=== PATIENT | female | born 1985 | race Caucasian/White ===

== ENCOUNTER 2017-11-20 08:45 | Emergency (ER) | payer BC, OTHER ==
[~2017-11-20] VITALS: Ht 165.1 cm; Wt 99.8 kg
--- OUTSIDE RECORDS SUMMARY | 2017-11-20 08:53 | XMS REPORT ---
Author TIAGO Rangel [facility] eClinicalWorks Address Unknown Phone Unavailable Care Team Providers Care [employer] Agent Name Role Phone TIAGO ROSAS CP Unavailable Allergies No Known Allergies Problems Problem Type Condition ICD-9 Code Onset Dates Condition Status Assessment Screening for tuberculosis V74.1 Active Medications No Known Medications Procedures Procedure Coding System Code Date TB INTRADERMAL TEST CPT-4 64120 Jan 25, 2015 Results No Known Results Summary Purpose eClinicalWorks Submission
[2017-11-20] MEDS ORDERED: SERT50TA2 PO (09:22)
--- NOTE | 2017-11-20 10:18 | Diagnostic Imaging Report ---
PROCEDURE: CT head without contrast. TECHNIQUE: Multiple contiguous axial images were obtained through the brain without the use of intravenous contrast. INDICATION: Trauma, Headache There are no prior studies available for comparison. There is no mass, shift of midline or hemorrhage to suggest an acute intracranial abnormality. The normal tentorial blush is noted. The ventricles are not abnormally dilated. The bone window show no evidence for a fracture or for a destructive lesion. The orbits and sinuses were not visualized in their entirety. Where visualized there is no acute abnormality. IMPRESSION: 1. There is no evidence for an acute intracranial abnormality. 2. If clinical concern regarding an underlying abnormality persists, then MRI would be recommended for further study. Dictated by: Dictated on workstation # [id number]
[2017-11-20] MEDS ORDERED: ONDANSETRON 4 MG (ZOFRAN) ORAL DISSOLVE TAB PO ONE (10:30)
[2017-11-20] MEDS ORDERED: KETOROLAC 60 MG/2 ML VIAL IM ONE (10:30)
--- NOTE | 2017-11-20 10:30 | ED Head Injury ---
General Chief Complaint: Head/Cervical Problems Stated Complaint: MIGRAINE Nursing Triage Note: HIT BACK OF HEAD, LAST NIGHT, ON METAL RACK. NO LOC. STATES WOKE UP THIS MORNING NOT FEELING LIKE HERSELF. STATED SHE VOMITTED @7X, CLEAR LIQUID. TOOK 1000MG TYLENOL AT 0600, HELPED WITH H/A. STATES H/A WORSE WHEN LYING DOWN Source: patient Exam Limitations: no limitations History of Present Illness Date Seen by Provider: Nov 20, 2017 Time Seen by Provider: 09:08 Initial Comments PT ARRIVES VIA POV FROM HOME PT STATES LAST NIGHT AROUND 1915, SHE BENT OVER AND PICKED UP HER CHILD FROM UNDER A RACK OF CLOTHES AND WHEN SHE RAISED UP, SHE BUMPED THE BACK OF HER HEAD ON METAL CLOTHES RACK STATES SHE WOKE UP WITH A "MIGRAINE" THIS MORNING STATES SHE HAS VOMITED X 6-7 THIS AM TOOK TYLENOL AT 0600 AND IT HELPED HEADACHE NO LOSS OF CONSCIOUSNESS NO PARESTHESIAS OR MOTOR DEFICITS NO VISION CHANGES NO NECK PAIN NO DIZZINESS Allergies and Home Medications Allergies Coded Allergies: No Known Drug Allergies (Unverified , 11/20/17) Home Medications Butalb/Acetaminophen/Caffeine 1 Each Capsule, 1-2 EACH PO Q6H PRN for HEADACHE Prescribed by: DORA MENA on 11/20/17 1052 Ondansetron 4 Mg Tab.rapdis, 4 MG PO Q4H Prescribed by: DORA MENA on 11/20/17 1052 Sertraline HCl 50 Mg Tablet, 50 MG PO DAILY, (Reported) Patient Home Medication List Home Medication List Reviewed: Yes Review of Systems Constitutional: no symptoms reported Eyes: No Symptoms Reported Ears, Nose, Mouth, Throat: no symptoms reported Respiratory: no symptoms reported Cardiovascular: no symptoms reported Gastrointestinal: see HPI; No abdominal pain; nausea, vomiting Genitourinary: no symptoms reported Musculoskeletal: no symptoms reported Psychiatric/Neurological: See HPI; Denies Cognitive Dysfunction; Headache; Denies Numbness, Denies Tingling, Denies Weakness Endocrine: No Symptoms Reported Hematologic/Lymphatic: No Symptoms Reported Past Ohtuzad-Aidiwj-Qcqbrr Hx Patient Social History Alcohol Use: Rarely Uses Recreational Drug Use: No Smoking Status: Never a Smoker 2nd Hand Smoke Exposure: No Recent Foreign Travel: No Contact w/Someone Who Travel: No Recent Infectious Disease Expo: No Recent Hopitalizations: No Physical Abuse: No Sexual Abuse: No Immunizations Up To Date Tetanus Booster (TDap): Less than 5yrs Seasonal Allergies Seasonal Allergies: Yes Past Medical History Surgeries: Yes Section, Gallbladder, Orthopedic, Tonsillectomy Respiratory: No Cardiac: No Neurological: No : No Last Menstrual Period: Nov 16, 2017 Sexually Transmitted Disease: No Genitourinary: No Gastrointestinal: Yes ( ) Hiatal Hernia Musculoskeletal: No Endocrine: No HEENT: No Cancer: No Psychosocial: Yes Anxiety Nursing Suicide Risk Score: 0 Integumentary: No Blood Disorders: No Adverse Reaction/Blood Tranf: No Physical Exam Vital Signs Capillary Refill : Less Than 3 Seconds Height, Weight, BMI Height: 5'5.00" Weight: 220lbs.oz.[id number]; BMI Method:Stated General Appearance: WD/WN, no apparent distress HEENT: PERRL/EOMI, normal ENT inspection, TMs normal, pharynx normal, other ( NO EXTERNAL EVIDENCE OF TRAUMA) Neck: non-tender, full range of motion, supple, normal inspection Cardiovascular: regular rate, rhythm, no murmur Respiratory: normal breath sounds, no respiratory distress Gastrointestinal: normal bowel sounds, non tender, soft Back: normal inspection, no CVA tenderness Extremities: normal range of motion, non-tender, normal inspection, no pedal edema, no calf tenderness, normal capillary refill Psychiatric: alert, oriented x 3 Crainal Nerves: normal hearing, normal speech, PERRL Coordination/Gait: normal finger to nose, normal gait, negative Romberg's sign Motor/Sensory: no motor deficit, no sensory deficit Skin: normal color, warm/dry Progress/Results/Core Measures Results/Orders My Orders Vital Signs/I&O Blood Pressure Mean: [address] HEAD--NO ACUTE PROCESS, PER RADIOLOGIST REPORT @ 1030 Reviewed: Reviewed by Me Departure Impression Primary Impression: Minor head injury without loss of consciousness Additional Impression: POSSIBLE CONCUSSION Disposition: 01 HOME, SELF-CARE Condition: Stable Departure-Patient Inst. Referrals: IRIS KENNEDY DO (PCP/Family) Primary Care Physician Patient Instructions: Concussion, Adult (DC) Add. Discharge Instructions: LOTS OF CLEAR LIQUIDS TYLENOL 1 GRAM / MOTRIN 800 MG 4 TIMES A DAY FOR PAIN FOLLOW UP WITH YOUR DR IN 2-3 DAYS FOR FURTHER CARE All discharge instructions reviewed with patient and/or family. Voiced understanding. Scripts Butalb/Acetaminophen/Caffeine (Esgic Capsule) 1 Each Capsule 1-2 EACH PO Q6H PRN for HEADACHE, #10 CAP Prov: DORA MENA DO 11/20/17 Ondansetron (Zofran Odt) 4 Mg Tab.rapdis 4 MG PO Q4H for Nausea/Vomiting, #10 TAB Prov: DORA MENA DO 11/20/17 DORA MENA DO Nov 20, 2017 10:30
[2017-11-20] MEDS ORDERED: BUTA1CAP45 PO (10:52)
[2017-11-20] MEDS ORDERED: ONDA4TAB8 PO (10:52)
[2017-11-20 11:05] VITALS: BP 102/62
== END 2017-11-20 11:05 | disposition home or self-care (01) ==
LOC: EDUNIT# 08:45 → ER 08:50
DX: S09.90XA Unspecified injury of head, initial encounter (principal); G43.909 Migraine, unspecified, not intractable, without status migrainosus; F41.9 Anxiety disorder, unspecified; Z87.59 Personal history of other complications of pregnancy, childbirth and the puerperium; Z90.89 Acquired absence of other organs; W22.09XA Striking against other stationary object, initial encounter
CPT/HCPCS: 70450; 96372

== ENCOUNTER → 2019-07-26 | Outpatient (CLI) | payer BC, OTHER ==
[~2019-07-26] MED LIST: BUTA1CAP45 PO; ONDA4TAB8 PO; SERT50TA2 PO
--- NOTE | 2019-07-26 15:20 | Diagnostic Imaging Report ---
PROCEDURE: US Non-ob pelvis comp/trans. TECHNIQUE: Multiple realtime grayscale images were obtained of the pelvis in various projections endovaginally. Transabdominal imaging was also performed. INDICATION: Acute pelvic pain and right ovarian enlargement. FINDINGS: Uterus is anteverted measuring 9.5 x 5.0 x 5.8 cm. Endometrium is approximately 10 mm in thickness. No myometrial mass is detected. Right ovary does contain multiple enlarged cysts. Largest cyst measures 7.7 x 5.3 x 9.2 cm. There is also some septated right ovarian cyst. There is blood flow to the right ovary. Left ovary also contains multiple cysts, largest 4.6 x 3.6 x 4.6 cm. There is blood flow to the left ovary. No other adnexal mass is seen. There is no free fluid. IMPRESSION: Bilateral ovarian cystic masses some of which are septated. Follow-up ultrasound in six to eight weeks is recommended to confirm stability/clearing. Dictated by: Dictated on workstation # [id number]
== END ==
LOC: RAD 13:43
PROVIDERS: ATTEND Obstetrics & Gynecology
DX: N83.8 Other noninflammatory disorders of ovary, fallopian tube and broad ligament (principal); R10.2 Pelvic and perineal pain
CPT/HCPCS: 76830; 76856

== ENCOUNTER 2019-08-05 05:35 | Outpatient (CLI) | payer BC ==
[~2019-08-05] VITALS: Ht 165.1 cm; Wt 79.5 kg
== END 2019-08-05 10:49 | disposition home or self-care (01) ==
LOC: PREOP 05:35
PROVIDERS: ATTEND Obstetrics & Gynecology
DX: Z01.818 Encounter for other preprocedural examination (principal)

== ENCOUNTER 2019-08-09 07:28 | Day surgery (SDC) | payer BC ==
[2019-08-09] VITALS (11 sets, daily range): BP systolic 89–118; BP diastolic 56–88
[~2019-08-09] VITALS: Ht 165 cm; Wt 79.5 kg
--- OUTSIDE RECORDS SUMMARY | 2019-08-09 07:33 | XMS REPORT | Continuity of Care Document ---
Author Organization Unknown Address Unknown Phone Unavailable Allergies Active Description Code Type Severity Reaction Onset Reported/Identified Relationship to Patient Clinical Status Yes No Known Drug Allergies [id number] Drug Allergy Unknown N/A 11/20/2017 Medications There is no data. Problems Date Dx Coded Attending Type Code Diagnosis Diagnosed By 11/20/2017 DORA MENA DO Ot F41.9 ANXIETY DISORDER, UNSPECIFIED 11/20/2017 DORA MENA DO Ot G43.909 MIGRAINE, UNSP, NOT INTRACTABLE, WITHOUT 11/20/2017 RAJESH DODORA K Ot S09.90X A UNSPECIFIED INJURY OF HEAD, INITIAL ENCO 11/20/2017 RAJESH DORA COYLE Ot W22.09X A STRIKING AGAINST OTHER STATIONARY OBJECT 11/20/2017 RAJESH DORA COYLE Ot Z87.59 PERSONAL HISTORY OF COMP OF PREG, CHLDBR 11/20/2017 RAJESH DO DORA K Ot Z90.89 ACQUIRED ABSENCE OF OTHER ORGANS 11/24/2017 DORA MENA DO Ot F41.9 ANXIETY DISORDER, UNSPECIFIED 11/24/2017 RAJESH DO DORA K Ot G43.909 MIGRAINE, UNSP, NOT INTRACTABLE, WITHOUT 11/24/2017 RAJESH DO DORA K Ot S09.90X A UNSPECIFIED INJURY OF HEAD, INITIAL ENCO 11/24/2017 RAJESH DORA COYLE K Ot W22.09X A STRIKING AGAINST OTHER STATIONARY OBJECT 11/24/2017 RAJESH DO DORA K Ot Z87.59 PERSONAL HISTORY OF COMP OF PREG, CHLDBR 11/24/2017 RAJESH ROLANDO COYLEA Jojo Ot Z90.89 ACQUIRED ABSENCE OF OTHER ORGANS 07/28/2019 MIRTHA VIRAMONTES DO Ot N83.8 OTH NONINFLAMMATORY DISORD OF OVARY, FAL 07/28/2019 MIRTHA VIRAMONTES DO Ot R10.2 PELVIC AND PERINEAL PAIN 08/06/2019 MIRTHA VIRAMONTES DO Ot Z01.818 ENCOUNTER FOR OTHER PREPROCEDURAL EXAMIN Procedures There is no data. Results There is no data. Encounters ACCT No. Visit Date/Time Discharge Status Pt. Type Provider Facility Loc./Unit Complaint [id number] 08/05/2019 05:35:00 020 10:49:00 DIS Outpatient MIRTHA VIRAMONTES DO [facility] PREOP RIGHT OVARIAN MASS [id number] 07/26/2019 13:43:00 020 23:59:59 CLS Outpatient MIRTHA VIRAMONTES DO [facility] RAD ACUTE PELVIC PAIN [id number] 11/20/2017 08:50:00 018 11:05:00 DIS Emergency RAJESH DORA COYLE [facility] ER MIGRAINE [id number] 08/09/2019 08:45:00 P EN Preadmit MIRTHA VIRAMONTES DO [facility] SDC RIGHT OVARIAN MASS
[2019-08-09] MEDS ORDERED: proPOfol 200 MG/20 ML (DIPRIVAN) VIAL IV ONE (08:14)
[2019-08-09] MEDS ORDERED: GLYCOPYRROLATE 0.2 MG/ML (ROBINUL) 2 ML VIAL ONE (08:14)
[2019-08-09] MEDS ORDERED: SEVOFLURANE (ULTANE) 15 ML INHAL SOLN ONE ×2 (08:14→10:35)
[2019-08-09] MEDS ORDERED: LIDOCAINE PF 2% 5 ML (XYLOCAINE) VIAL ONE (08:14)
[2019-08-09] MEDS ORDERED: ONDANSETRON 4 MG/2 ML (SDV) Z0FRAN ONE (08:14)
[2019-08-09] MEDS ORDERED: ROCURONIUM 10 MG/ML 5 ML SYRINGE IV ONE (08:14)
[2019-08-09] MEDS ORDERED: NEOSTIGMINE 3 MG/3 ML VIAL ONE (08:14)
[2019-08-09] MEDS ORDERED: fentaNYL INJECTION 100 MCG/2 ML AMP ONE (08:15)
[2019-08-09] MEDS ORDERED: MIDAZOLAM 2 MG/2 ML (VERSED) VIAL ONE (08:15)
[2019-08-09 08:18] LABS: BASOPHILS % (AUTO) 0 % (0-10); EOSINOPHILS # (AUTO) 0.1 10^3/uL (0.0-0.3); EOSINOPHILS % (AUTO) 2 % (0-10); HEMATOCRIT 40 % (35-52); HEMOGLOBIN 13.1 G/DL (11.5-16.0); LYMPHOCYTES # (AUTO) 1.6 X 10^3 (1.0-4.0); LYMPHOCYTES % (AUTO) 42 % (12-44); MEAN CORPUSCULAR HEMOGLOBIN 28 PG (25-34); MEAN CORPUSCULAR HGB CONC 33 G/DL (32-36); MEAN CORPUSCULAR VOLUME 86 FL (80-99); MEAN PLATELET VOLUME 9.5 FL (7.4-10.4); MONOCYTES # (AUTO) 0.3 X 10^3 (0.0-1.0); MONOCYTES % (AUTO) 7 % (0-12); NEUTROPHILS # (AUTO) 1.9 X 10^3 (1.8-7.8); NEUTROPHILS % (AUTO) 49 % (42-75); PLATELET COUNT 254 10^3/uL (130-400); RED CELL DISTRIBUTION WIDTH 13.5 % (10.0-14.5); WHITE BLOOD COUNT 3.7 10^3/uL (4.3-11.0)
--- NOTE | 2019-08-09 08:37 | Progress Note-Pre Operative ---
Pre-Operative Progress Note H&P Reviewed The H&P was reviewed, patient examined and no changes noted. Date Seen by Provider: Aug 09, 2019 Time Seen by Provider: 08:35 Date H&P Reviewed: Aug 09, 2019 Time H&P Reviewed: 08:35 Pre-Operative Diagnosis: Right adnexal/ovarian mass 9cm MIRTHA VIRAMONTES DO Aug 09, 2019 08:37
[2019-08-09] MEDS: LACTATED RINGERS 1,000 ML IV PRN ×2 (08:39→09:20)
[2019-08-09] MEDS ORDERED: BUP/EPI 0.5% 1:200,000 (SENSORCAINE) 30 ML VIAL ONE (08:40)
[2019-08-09] MEDS ORDERED: D5 LR IV SOLUTION 1,000 ML IV SCH (08:44)
[2019-08-09] MEDS ORDERED: HYDROcodone/APAP 5 MG/325 MG (LORTAB) TAB PO PRN (08:45)
[2019-08-09] MEDS ORDERED: KETOROLAC 30 MG/ML VIAL IVP ONE (08:45)
[2019-08-09] MEDS ORDERED: ONDANSETRON 4 MG/2 ML (SDV) Z0FRAN IVP PRN ×2 (08:45→11:00)
[2019-08-09] MEDS ORDERED: HYDR-4226 PO (08:47)
[2019-08-09] MEDS ORDERED: IBUP-1773 PO (08:47)
--- NOTE | 2019-08-09 08:49 | Discharge Inst-Women's Service ---
Discharge Inst-Women's Serv Depart Medication/Instructions New, Converted or Re-Newed RX: RX on Chart Problems Reviewed?: Yes Consults/Follow Up Additional Follow Up: Yes Orders/Referrals Dr. Anders in 7-10 days Activity Activity: Activity as Tolerated Driving Instructions: No Driving for 1 Week NO SMOKING: NO SMOKING Nothing Inside Vagina: No Douching, No Spelter, No Tampons Diet Discharge Diet: No Restrictions Symptoms to Report to : Bleeding Excessive, Pain Increased, Fever Over 101 Degrees F, Vaginal Bleeding Increase, Questions/Concerns For Any Problems or Questions: Contact Your Physician Skin/Wound Care Infection Signs and Symptoms: Increased Redness, Foul Odor of Wound, Increased Drainage, Skin Itchy or Has a Rash, Increased Swelling, Temperature Above 101 F Operative Area Clean and Dry: Keep Incision Clean/Dry Stitches/Alviso/Dermabond: Dermabond, Care of Stitches Bathing Instructions: MIRTHA Cooley DO Aug 09, 2019 08:49
[2019-08-09] MEDS ORDERED: BUPIVACAINE 0.25% 30 ML (SENSORCAINE) VIAL ONE (09:07)
[2019-08-09] MEDS ORDERED: MEPERIDINE (DEMEROL) INJ 50 MG/ML IVP ONE (11:00)
[2019-08-09] MEDS ORDERED: fentaNYL INJECTION 100 MCG/2 ML AMP IVP ONE (11:00)
[2019-08-09] MEDS ORDERED: morphine INJ 10 MG/ML 1ML (SYR OR VIAL) ONE (11:00)
[2019-08-09] MEDS ORDERED: morphine INJ 10 MG/ML 1ML (SYR OR VIAL) IVP ONE (11:00)
[2019-08-09] MEDS ORDERED: KETOROLAC 30 MG/ML VIAL ONE (11:01)
--- NOTE | 2019-08-09 11:59 | Anesthesia-General Post-Op ---
General Patient Condition Mental Status/LOC: Same as Preop Cardiovascular: Satisfactory Nausea/Vomiting: Absent Respiratory: Satisfactory Pain: Controlled Complications: Absent Post Op Complications Complications None Follow Up Care/Instructions Patient Instructions None needed. Anesthesia/Patient Condition Patient Condition Patient is doing well, no complaints, stable vital signs, no apparent adverse anesthesia problems. No complications reported per nursing. SIMONE ARRIAZA CRNA Aug 09, 2019 11:59
--- NOTE | 2019-08-09 16:26 | OPERATIVE REPORT ---
DATE OF SERVICE: 08/09/2019 PREOPERATIVE DIAGNOSIS: A 33-year-old female with right adnexal mass. POSTOPERATIVE DIAGNOSES: 1. A 33-year-old female with right adnexal mass. 2. Bilateral ovarian simple cyst. PROCEDURE: Operative laparoscopy with right salpingo-oophorectomy and aspiration of left ovarian cyst. SURGEON: Mirtha Viramontes DO WELDER FITTER GAS: Romana Henry DNP, who was necessary for manipulation and retraction throughout the procedure. ANESTHESIA: General endotracheal. ESTIMATED BLOOD LOSS: Minimal. URINE OUTPUT: 250 mL clear at the end of the procedure. FLUIDS: 1200 mL lactated Ringer's solution. FINDINGS: A 9 to 10 cm enlarged right ovary completely obliterated by a simple fluid-filled cyst, grossly normal appearing left ovarian stroma with a mild enlargement of 3 to 4 cm simple appearing cyst, grossly normal appearing uterus, bilateral fallopian tubes. 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 SPECIMEN SENT: Right tube and ovary, bilateral ovarian cyst aspirate and pelvic washings. INDICATIONS FOR PROCEDURE: This 33-year-old female is a patient who had come to my office for an annual examination, reported that she had had some pelvic pressure and discomfort and significant pressure with intercourse. She reports this has been slow and progressing throughout the last 3 to 4 years. She had admittedly has not gone with a pelvic exam for quite some time. On examination, I could palpate a large structure in the right adnexa. Follow up ultrasound revealed a 9 to 10 cm ovarian cyst with a smaller 4 to 5 cm, one on the left side as well. I discussed with the patient due to her discomfort and the size of this, we should address this. Risk of diagnostic laparoscopy was reviewed with the patient in detail including possibility of removing the right ovary. I discussed with her the risks of the procedure including bleeding, infection, damage to surrounding structures including, but not limited to bowel, bladder, ureter, kidneys, possible need for reoperation, possible risk from anesthesia, risk for possible blood transfusion and even . After everything was discussed with the patient in detail, consent was obtained in the preoperative area and the patient was taken to the operating room after all of her questions were answered. OPERATIVE REPORT IN DETAIL: Once in the operating room, general anesthesia was found to be adequate. She was placed in dorsal lithotomy position, prepped and draped in normal sterile fashion. A timeout was performed. I began by placing a weighted speculum into the patient's vagina. A right angle retractor was used to visualize the cervix. It was grasped at 12 o'clock position using a long Allis clamp. I then sound the uterine cavity that was sounded to be 8 cm. I then placed a Kronner uterine manipulator at depth of 8 cm deploying the balloon and removed all the other instruments from the patient's vagina. Dumas was also placed using sterile technique during this process. I then performed a change of gloves. Turned my attention to the abdomen where infraumbilically I infiltrated this area using 0.25% Marcaine to make a 5 mm incision and directed a Veress needle through the incision, intraperitoneal placement was confirmed using saline drop test. Opening pressure of 4 mmHg was noted. I proceeded to max pressure of 15 mmHg, at which point I removed the Veress needle and introduced a 5 mm blunt laparoscopic trocar. Once this was in place, I am able to confirm intraperitoneal placement using the laparoscope. There was no evidence of damage upon my entry. A brief scan of the upper abdominal anatomy is described above. I have the patient placed in steep Trendelenburg and placed a second and third trocar. The second trocar, the suprapubic trocar approximately 2 cm through the previously existing scar. This trocar was placed is a 12 mm trocar, it was placed through the incision under direct visualization of laparoscope. There was also a left lower quadrant trocar that places 5 mm under direct visualization and laparoscope. Once both these are in place, I began by removing the right ovary using the LigaSure. I started at the infundibulopelvic ligament and take this around the mesovarium and amputated the fallopian tube and the uteroovarian ligament proximally using the LigaSure. I then placed an Endopouch bag through the 12 mm trocar site and using suction I am able to suction aspirate the ovary as I placed it within the bag as it does not fit into the Endopouch bag initially. Pelvic washings were collected before the ovary was removed. Once the ovary is in the Endopouch bag I am able to remove it through the larger trocar site that was suprapubic. I then also suction drain aspirate the left ovary as well as it appears smooth and benign and the patient does want to avoid removal of bilateral ovaries. After which, there was no active bleeding noted from any of my dissection planes. I copiously irrigated the pelvis using normal saline. Once again, there was no active bleeding noted from any of my dissection planes. I removed the trocars and released insufflation. The larger trocar site fascia was closed using 0 Vicryl suture in a [id number]-yp-hzabd fashion. The skin reapproximated using 4-0 Monocryl in a running subcuticular. Dermabond was placed over all incisions and Band-Aids were placed over the incisions as well. Dumas catheter was removed. The patient tolerated the procedure well and was taken to recovery area in stable condition. Lap and sponge counts were correct at the end of the procedure. Instrument counts correct as well. Job ID: [id number] DocumentID: [id number] Dictated Date: 08/09/2019 11:05:04 [employer] Professional Date: 08/09/2019 16:25:52 Dictated By: MIRTHA VIRAMONTES DO
== END 2019-08-09 14:35 | disposition home or self-care (01) ==
LOC: SDC 07:28
PROVIDERS: ATTEND Obstetrics & Gynecology
DX: D27.0 Benign neoplasm of right ovary (principal); N83.202 Unspecified ovarian cyst, left side; N80.0 Endometriosis of uterus; K66.0 Peritoneal adhesions (postprocedural) (postinfection); F32.9 Major depressive disorder, single episode, unspecified
CPT/HCPCS: 36415; 84703; 85025; 86850; 86900; 86901; 87081

== ENCOUNTER → 2020-09-18 | Outpatient (CLI) | payer BC ==
[~2020-09-18] MED LIST changes: +HYDR-4226 PO; +IBUP-1773 PO
--- NOTE | 2020-09-18 19:57 | Diagnostic Imaging Report ---
PROCEDURE: US Non-ob pelvis comp/trans. INDICATION: Pelvic and perineal pain. One-year post right-sided oophorectomy TECHNIQUE: Multiple real time almonte scale sonographic images were obtained of the pelvis transabdominally and endovaginally. CORRELATION STUDY: 07/26/2019 FINDINGS: UTERUS: 9.7 x 4.5 x 5.6 cm. The uterus appears unremarkable. ENDOMETRIUM: 8 mm. The endometrium appearing unremarkable. RIGHT OVARY: Surgically removed No definitive abnormal right adnexal mass. LEFT OVARY: 4.3 x 5.3 x 4.9 cm. Two hypoechoic masses, cysts are present. Largest 4.1 x 4.7 x 3.8 cm. Second one 3.5 x 1.5 x 2.7 cm. Blood flow to the left ovary is present. No significant free pelvic fluid. IMPRESSION: 1. Unremarkable uterus. 2. Two prominent left ovarian cysts at approximately up to just under 5 cm maximum size. Dictated by: Dictated on workstation # [id number]
== END ==
LOC: RAD 15:15
PROVIDERS: ATTEND Obstetrics & Gynecology
DX: N83.202 Unspecified ovarian cyst, left side (principal); Z90.721 Acquired absence of ovaries, unilateral
CPT/HCPCS: 76830; 76856

== ENCOUNTER 2020-10-23 05:32 | Outpatient (CLI) | payer BC ==
[~2020-10-23] VITALS: Ht 165.1 cm; Wt 79.5 kg
[2020-10-23] MEDS ORDERED: ASCO500C18 PO (10:53)
== END 2020-10-23 12:10 | disposition home or self-care (01) ==
LOC: PREOP 05:32
PROVIDERS: ATTEND Obstetrics & Gynecology
DX: Z01.818 Encounter for other preprocedural examination (principal)

== ENCOUNTER 2020-10-27 09:13 | Day surgery (SDC) | payer BC ==
[~2020-10-27] VITALS: Ht 165.1 cm; Wt 79.5 kg
[2020-10-27] VITALS (11 sets, daily range): BP systolic 81–107; BP diastolic 52–63
[~2020-10-27 09:13] MED LIST changes: +ASCO500C18 PO; +ceFAZolin 2 GM IV Premixed 50 ML IV ONE; +metroNIDAZOLE 500MG/100ML IVPB 100 ML IV ONE
[2020-10-27] MEDS: LACTATED RINGERS 1,000 ML IV PRN ×2 (09:40→13:50)
[2020-10-27] MEDS ORDERED: ceFAZolin 2 GM IV Premixed 50 ML ONE (10:05)
[2020-10-27 10:07] LABS: BASOPHILS % (AUTO) 1 % (0-10); EOSINOPHILS # (AUTO) 0.2 10^3/uL (0.0-0.3); EOSINOPHILS % (AUTO) 6 % (0-10); HEMATOCRIT 43 % (35-52); HEMOGLOBIN 13.9 g/dL (11.5-16.0); LYMPHOCYTES # (AUTO) 1.5 10^3/uL (1.0-4.0); LYMPHOCYTES % (AUTO) 44 % (12-44); MEAN CORPUSCULAR HEMOGLOBIN 28 pg (25-34); MEAN CORPUSCULAR HGB CONC 33 g/dL (32-36); MEAN CORPUSCULAR VOLUME 87 fL (80-99); MEAN PLATELET VOLUME 8.7 fL (9.0-12.2); MONOCYTES # (AUTO) 0.3 10^3/uL (0.0-1.0); MONOCYTES % (AUTO) 9 % (0-12); NEUTROPHILS # (AUTO) 1.4 10^3/uL (1.8-7.8); NEUTROPHILS % (AUTO) 40 % (42-75); PLATELET COUNT 241 10^3/uL (130-400); WHITE BLOOD COUNT 3.4 10^3/uL (4.3-11.0)
--- NOTE | 2020-10-27 10:38 | Progress Note-Pre Operative ---
Pre-Operative Progress Note H&P Reviewed The H&P was reviewed, patient examined and no changes noted. Date Seen by Provider: Oct 27, 2020 Time Seen by Provider: 10:35 Date H&P Reviewed: Oct 27, 2020 Time H&P Reviewed: 10:15 Pre-Operative Diagnosis: CPP, Ovarian cyst, Dysmenorrhea MIRTHA VIRAMONTES DO Oct 27, 2020 10:38
--- NOTE | 2020-10-27 10:40 | Discharge Inst-Women's Service ---
Discharge Inst-Women's Serv Depart Medication/Instructions New, Converted or Re-Newed RX: RX on Chart Problems Reviewed?: Yes Consults/Follow Up Additional Follow Up: Yes Orders/Referrals Dr. Anders in 7-10 days and in 8 weeks Activity Activity: Activity as Tolerated Driving Instructions: No Driving for 1 Week NO SMOKING: NO SMOKING Nothing Inside Vagina: No Douching, No [place], No Tampons Diet Discharge Diet: No Restrictions Symptoms to Report to : Bleeding Excessive, Pain Increased, Fever Over 101 Degrees F, Vaginal Bleeding Increase, Questions/Concerns For Any Problems or Questions: Contact Your Physician Skin/Wound Care Infection Signs and Symptoms: Increased Redness, Foul Odor of Wound, Increased Drainage, Skin Itchy or Has a Rash, Increased Swelling, Temperature Above 101 F Operative Area Clean and Dry: Keep Incision Clean/Dry Stitches/Kayla/Dermabond: Dermabond, Care of Stitches Bathing Instructions: MIRTHA Cooley DO Oct 27, 2020 10:40
[2020-10-27] MEDS ORDERED: IBUP-844 PO (10:41)
[2020-10-27] MEDS ORDERED: SMT80CT PO (10:41)
[2020-10-27] MEDS ORDERED: HYDR-34 PO (10:41)
[2020-10-27] MEDS ORDERED: DCS100C PO (10:41)
[2020-10-27] MEDS ORDERED: ONDANSETRON 4 MG/2 ML (SDV) Z0FRAN IV PRN (10:45)
[2020-10-27] MEDS ORDERED: SIMETHICONE 80 MG (MYLICON) CHEW PO PRN (10:45)
[2020-10-27] MEDS ORDERED: CHLORASEPTIC LOZENGE MM PRN (10:45)
[2020-10-27] MEDS ORDERED: ANTACID SUSP 30 ML UDC (MYLANTA) PO PRN (10:45)
[2020-10-27] MEDS ORDERED: ZOLPIDEM 5 MG (AMBIEN) TAB PO PRN (10:45)
[2020-10-27] MEDS ORDERED: BUPIVACAINE 0.25% 30 ML (SENSORCAINE) VIAL ONE (10:49)
[2020-10-27] MEDS ORDERED: FAMOTIDINE 20MG/2ML IV (PEPCID) IV ONE (11:00)
[2020-10-27] MEDS ORDERED: SCOPOLAMINE 1.5 MG (TRANSDERM-SCOP) PATCH TOP ONE (11:00)
[2020-10-27] MEDS ORDERED: ONDANSETRON 4 MG/2 ML (SDV) Z0FRAN IV ONE (11:00)
[2020-10-27] MEDS ORDERED: ONDANSETRON 4 MG/2 ML (SDV) Z0FRAN ONE ×3 (11:18→13:55)
[2020-10-27] MEDS ORDERED: FAMOTIDINE 20MG/2ML IV (PEPCID) ONE (11:18)
[2020-10-27] MEDS ORDERED: fentaNYL INJ 100 MCG/2 ML AMP ONE (12:06)
[2020-10-27] MEDS ORDERED: proPOfol 200 MG/20 ML (DIPRIVAN) VIAL IV ONE (12:06)
[2020-10-27] MEDS ORDERED: GLYCOPYRROLATE 0.2 MG/ML (ROBINUL) 2 ML VIAL ONE (12:06)
[2020-10-27] MEDS ORDERED: LIDOCAINE PF 2% 5 ML (XYLOCAINE) VIAL ONE (12:06)
[2020-10-27] MEDS ORDERED: NEOSTIGMINE 3 MG/3 ML VIAL ONE (12:06)
[2020-10-27] MEDS ORDERED: ROCURONIUM 10 MG/ML 5 ML SYRINGE IV ONE (12:06)
[2020-10-27] MEDS ORDERED: SEVOFLURANE (ULTANE) 15 ML INHAL SOLN ONE (12:07)
[2020-10-27] MEDS ORDERED: MIDAZOLAM 2 MG/2 ML (VERSED) VIAL ONE (12:07)
[2020-10-27] MEDS: LACTATED RINGERS 1,000 ML IV SCH ×2 (12:55→19:35)
[2020-10-27] MEDS ORDERED: LACTATED RINGERS 1,000 ML IV ONE (13:44)
[2020-10-27] MEDS ORDERED: KETOROLAC 30 MG/ML VIAL ONE (13:44)
[2020-10-27] MEDS ORDERED: HYDROmorphone 2 MG/ML VIAL (DILAUDID) IV ONE (13:45)
[2020-10-27] MEDS ORDERED: MEPERIDINE (DEMEROL) INJ 50 MG/ML IVP ONE (13:45)
[2020-10-27] MEDS ORDERED: ONDANSETRON 4 MG/2 ML (SDV) Z0FRAN IVP PRN (13:45)
[2020-10-27] MEDS ORDERED: fentaNYL INJ 100 MCG/2 ML AMP IVP ONE (13:45)
[2020-10-27] MEDS ORDERED: morphine INJ 10 MG/ML 1ML (SYR OR VIAL) IVP ONE (13:45)
[2020-10-27] MEDS: KETOROLAC 30 MG/ML VIAL IV PRN ×2 (13:46→20:47)
[2020-10-27] MEDS ORDERED: morphine INJ 10 MG/ML 1ML (SYR OR VIAL) ONE (13:55)
[2020-10-27] MEDS: HYDROcodone/APAP 7.5 MG/325 MG (LORTAB, LORCET PLUS) TABLET PO PRN (16:56)
--- NOTE | 2020-10-27 18:39 | OPERATIVE REPORT ---
DATE OF SERVICE: PREOPERATIVE DIAGNOSES: 1. A 35-year-old female with chronic pelvic pain. 2. Ovarian cyst. 3. Dysmenorrhea. POSTOPERATIVE DIAGNOSES: 1. A 35-year-old female with chronic pelvic pain. 2. Ovarian cyst. 3. Dysmenorrhea. 4. Significant serosal and uterine endometriosis involving the pelvic peritoneum, bilateral ovarian fossa and the vesicouterine pouch. PROCEDURES PERFORMED: Robotic-assisted total laparoscopic hysterectomy with left salpingo-oophorectomy. SURGEON: Pepe Viramontes MD. SHOE SALESPERSON: Romana Henry DNP, was necessary for manipulation and retraction throughout the procedure. ANESTHESIA: General endotracheal. ESTIMATED BLOOD LOSS: Minimal. URINE OUTPUT: 50 mL clear at the end of the procedure. FLUIDS: 1500 mL lactated Ringer's solution. FINDINGS: Diffuse dark and hemosiderin laden implants of endometriosis throughout the pelvis including the uterus, posterior and anterior cul-de-sac and bilateral ovarian fossa. Grossly normal appearing external female genitalia. SPECIMEN SENT: Uterus, cervix and left fallopian tube and ovary. INDICATIONS FOR PROCEDURE: This 35-year-old female is a patient, who had failed more conservative treatment options for dealing with her history of endometriosis, chronic ovarian cyst and chronic pelvic pain. She wished to proceed with hysterectomy. I discussed with the patient in the office hysterectomy involving oophorectomy, would instigate premature menopause. The patient was okay with that due to the amount of pain she was having. It was becoming debilitating. 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 The risks of the procedure were discussed with the patient in detail including risk of bleeding, infection, damage to surrounding structures including, but not limited to bowel, bladder, kidneys, possible need for operation, postoperative complications that may occur, risk from anesthesia and even . After everything was discussed with the patient in detail, we also discussed hormone replacement therapy and the risk of that and also the risk of not being on hormone replacement therapy starting at menopause at age 35. After all of her questions were answered, consent was obtained in the preoperative area and the patient was taken to the operating room. OPERATIVE REPORT IN DETAIL: Once in the operating room, general anesthesia was found to be adequate. She was placed in a dorsal lithotomy position, prepped and draped in a normal sterile fashion where a timeout was performed and anesthesia was administered. A Dumas catheter was placed using a sterile technique. A weighted speculum was inserted to the patient's vagina. Right angle retractor was used to visualize the cervix, which was grasped at 12 o'clock position using a long Allis clamp. I then placed a 0 Vicryl suture through the anterior lip of the cervix and used it as my retraction and removed the Allis clamp. I then gently sound the uterine cavity, depth was found to be 8 cm. I selected an 8 cm Dennise uterine manipulator tip and a 3.5 cm colpotomy ring. I advanced the manipulator tip into the uterus and advanced the colpotomy ring around the vaginal fornix. Once this was in place, I was able to confirm by manual manipulation on bimanual examination. I then removed all the other instruments from the patient's vagina, performed change of gloves and took my attention to the abdomen, where infraumbilically I infiltrated this area using 0.25% Marcaine. I made an 8 mm incision with a knife and directed Veress needle through the incision until intraperitoneal placement confirmed using a saline drop test. Opening pressure of 5 mmHg was confirmed using CO2 insufflation. I proceeded with CO2 insufflation to a maximum pressure of 15 mmHg, at which point, I removed the Veress needle and introduced an 8 mm blunt laparoscopic da Salvatore camera trocar. Once this was in place, I was able to confirm intraperitoneal placement using da Salvatore laparoscope. There was no evidence of damage upon my entry site. A brief scan of the upper abdominal anatomy appears normal with a few filmy adhesions from prior surgeries. I then had the patient placed in a deep Trendelenburg. I was able to visualize all my pelvic anatomy that was defined in my findings above. I placed two lateral trocars. These were both 8 mm trocars approximately 8 cm lateral to my infraumbilical trocar. Once both those trocars were placed under direct visualization of laparoscope by bringing the da Salvatore robot and docked in appropriate fashion, placing the da Salvatore vessel sealer in the left hand and monopolar nadiya in the right hand, I performed the following dissection. I started at the left infundibulopelvic ligament, which I sealed and transected using the vessel sealer. I took this down to the round ligament, which I sealed and transected using the vessel sealer. I then grasped the entire broad ligament, which I sealed and transected using the vessel sealer. I then the anterior and posterior leaflets of the broad ligament. The anterior leaflet dissection was taken around the anterior vaginal fornix and posterior leaflet was taken around the posterior vaginal fornix. This allowed me to skeletonize the uterine vessels laterally, which I bipolar cauterized, sealed and transected using the vessel sealer. I then, in similar fashion, on the right side, grasped the entire round ligament and broad ligament using the vessel sealer and took this down to the level of the lower uterine segment, where similarly, I the anterior and posterior leaflets, took them to meet my dissection from the other side and at the anterior and posterior vaginal fornix and then skeletonized the uterine vessels laterally, which I then sealed and transected using the da Salvatore vessel sealer. I then created a colpotomy at 12 o'clock position using monopolar nadiya and took this circumferentially around the vaginal fornix amputating the cervix from the vagina. The entire specimen was then removed through the vagina. I then closed the lateral vaginal apices of the vaginal cuff using 2-0 Vicryl suture in a [id number] fashion colposuspending them to the uterosacral ligaments. I then closed the remainder of the vaginal cuff using 2-0 V-Loc in a running fashion, after which no active bleeding was noted from any of my dissection planes. I then undocked the da Salvatore robot and proceeded with remainder of the case laparoscopically. I copiously irrigated the pelvis using normal saline. Once again, there was no active bleeding noted from any of my dissection planes. I placed Surgiflo hemostatic agent over all my planes of dissection. I had the patient taken out of steep Trendelenburg. I removed the lateral trocars under direct visualization of laparoscope and infraumbilical trocars left in place to release insufflation and to introduce 10 mL of 0.25% Marcaine into the peritoneal cavity for postoperative pain management. I then removed this trocar site as well. I then reapproximated the skin using 4-0 Monocryl running and interrupted subcuticular. Dermabond was applied to the incisions and Band-Aids were placed over the incisions as well. Dumas catheter was left in place. The patient tolerated the procedure well and sent to the recovery area in a stable condition. Lap and sponge counts were correct at the end of the procedure. Instrument count was correct as well. Job ID: [id number] DocumentID: [id number] Dictated Date: 10/27/2020 13:29:22 Information Security Date: 10/27/2020 18:39:15 Dictated By: PEPE VIRAMONTES DO
[2020-10-27] MEDS: DOCUSATE SODIUM 100 MG (COLACE) CAP PO PRN (22:21)
[2020-10-28] VITALS: BP 95/58
[2020-10-28] MEDS: HYDROcodone/APAP 7.5 MG/325 MG (LORTAB, LORCET PLUS) TABLET PO PRN ×2 (00:03→09:13)
[2020-10-28] MEDS: KETOROLAC 30 MG/ML VIAL IV PRN (03:19)
[2020-10-28 03:20] VITALS: BP 84/49
[2020-10-28] MEDS ORDERED: IBUPROFEN 600 MG (MOTRIN) TAB PO SCH (03:30)
[2020-10-28 08:00] VITALS: BP 84/50
[2020-10-28] MEDS: DOCUSATE SODIUM 100 MG (COLACE) CAP PO PRN (09:06)
--- NOTE | 2020-10-28 09:50 | Anesthesia-General Post-Op ---
General Patient Condition Mental Status/LOC: Same as Preop Cardiovascular: Satisfactory Nausea/Vomiting: Absent Respiratory: Satisfactory Pain: Controlled Complications: Absent Post Op Complications Complications None Follow Up Care/Instructions Patient Instructions None needed. Anesthesia/Patient Condition Patient Condition Patient is doing well, no complaints, stable vital signs, no apparent adverse anesthesia problems. No complications reported per nursing. [place] [facility] [place] Yes WILLIAM VIDAL CRNA Oct 28, 2020 09:50
[2020-10-28] MEDS ORDERED: SCOP1PAT11 TD (09:58)
[2020-10-28 10:30] VITALS: BP 84/50
== END 2020-10-28 10:30 | disposition home or self-care (01) ==
LOC: SDC 09:13 → WS 14:30 → SDC 10-28 10:30
PROVIDERS: ATTEND Obstetrics & Gynecology
DX: N94.6 Dysmenorrhea, unspecified (principal); D27.1 Benign neoplasm of left ovary; N94.5 Secondary dysmenorrhea; N80.0 Endometriosis of uterus; G89.29 Other chronic pain; N83.12 Corpus luteum cyst of left ovary; F32.9 Major depressive disorder, single episode, unspecified; Z90.89 Acquired absence of other organs; Z90.49 Acquired absence of other specified parts of digestive tract
CPT/HCPCS: 36415; 84703; 85025; 86850; 86900; 86901; 87081; 88307